=== PATIENT | male | born 1990 | race Caucasian/White ===

== ENCOUNTER 2025-01-27 16:13 | Emergency (ER) | payer OTHER ==
[~2025-01-27] VITALS: Ht 177.8 cm; Wt 81.7 kg
[2025-01-27] MEDS: KETOROLAC 30 MG/ML 1 ML VIAL IV ONE (19:26)
[2025-01-27] MEDS: NS (Normal Saline) 0.9% 1,000 ML IV ONE (19:26)
[2025-01-27 19:41] LABS: BASO # 0.0 10^3/uL (0.0-0.2); BASO % 0.4 % (0.0-1.0); EOS # 0.2 10^3/uL (0.0-0.5); EOS % 1.9 % (0.0-3.0); LYMPH # 2.3 10^3/uL (1.5-5.0); LYMPH % 22.1 % (24.0-44.0); MONO # 1.0 10^3/uL (0.0-0.8); MONO % 9.5 % (2.0-8.0); NEUTROPHILS # 6.9 10^3/uL (1.5-8.5); NEUTROPHILS % 65.9 % (36.0-66.0); PLATELET COUNT, AUTOMATED 328 10^3/uL (150-450)
[2025-01-27 20:03] LABS: D-DIMER QUANT < 0.27 ug/mL (<0.5); INR 1.02
[2025-01-27 20:07] LABS: ALT/SGPT 29 U/L (7.0-40); AST/SGOT 25 U/L (<34); CALCIUM LEVEL 9.3 MG/DL (8.5-10.1); CARBON DIOXIDE LEVEL 28 MMOL/L (20-31); CHLORIDE LEVEL 105 MMOL/L (98-107); CREATININE FOR GFR 0.96 MG/DL (0.70-1.30); GLOMERULAR FILTRATION RATE > 90.0 (>60); POTASSIUM SERUM 4.1 MMOL/L (3.5-5.1); SODIUM LEVEL 143 MMOL/L (136-145)
[2025-01-27] MEDS ORDERED: ISOVUE-370 76% 100 ML VIAL As Ordered ONE (20:44)
[2025-01-27 22:24] VITALS: BP 120/68; TEMP 97.4; O2SAT 99
[2025-01-27] MEDS ORDERED: KETO-204 PO (22:33)
== END 2025-01-27 22:42 | disposition home or self-care (01) ==
LOC: M ED 16:13
DX: M54.9 Dorsalgia, unspecified (principal); R74.8 Abnormal levels of other serum enzymes
CPT/HCPCS: 74177; 80048; 80076; 83690; 85025; 85379; 85610; 85730; 93005; 96361; 96374; 99284; J1885; Q9967